=== PATIENT | male | born 1960 | race Caucasian/White ===

== ENCOUNTER 2021-10-30 11:51 | Emergency (ER) | payer BC, SELFPAY ==
--- NOTE | ~2021-10-30 | CT_ITS ---
EXAMINATION: CT ANGIOGRAM CHEST CLINICAL INFORMATION: Chest pain, back pain and elevated troponin COMPARISON: None TECHNIQUE: Multiple axial images were obtained through the chest after the administration of 85 mL of Omnipaque 350 intravenous contrast. Additional 2-D coronal and sagittal reformatted images and axial 3-D maximum intensity projection MIP images are generated on the CT workstation. This CT examination was performed using dose optimization techniques as appropriate, variously including the following: *Automated exposure control *Adjustment of mA and/or kV according to patient size (this includes techniques or standardized protocols for targeted exams where dose is matched to indication/reason for exam; i.e. extremities or head) *Use of iterative reconstruction technique DLP: 377 mGy-cm FINDINGS: LUNGS: Some mild apical pleural-parenchymal scarring is seen with some minimal upper lobe peripheral blebs seen. The lungs are otherwise clear with no evidence of inflammation or nodules. MEDIASTINUM: The mediastinum is normal. VASCULAR: The thoracic aorta appears unremarkable. There is no evidence of an acute aortic syndrome such as dissection, aneurysm or intramural hematoma. Three-vessel branching pattern of the arch is seen with widely patent visualized great vessels. The small portion of the abdominal aorta is unremarkable with patent celiac and SMA. Only the right renal artery origin is seen. Although not carried out for evaluation the pulmonary arteries, they are exceptionally well seen and there is no evidence of pulmonary embolus. PLEURA: There is no pleural effusion. No pleural mass or thickening. AXILLA: No lymphadenopathy. UPPER ABDOMEN: Mild thickening of the left adrenal gland. OSSEOUS STRUCTURES: Unremarkable. CT/CT angio chest aorta IMPRESSION: No evidence of an acute aortic syndrome. The thoracic arch appears normal. No pulmonary emboli are visualized. Fleischner guidelines were followed.
--- NOTE | ~2021-10-30 | XR_ITS ---
EXAMINATION: XR CHEST CLINICAL INFORMATION: Cough, anterior chest pain COMPARISON: None TECHNIQUE: Frontal view of the chest was obtained. FINDINGS: The lungs appear hyperinflated. No focal consolidation is seen. Biapical scarring is noted. No evidence of pneumothorax, pleural effusion, or pulmonary edema. The cardiomediastinal contour is unremarkable. No acute osseous findings are seen. XR/XR chest 1V IMPRESSION: Hyperinflated lungs which may reflect CPPD. Otherwise no acute findings identified.
[2021-10-30 11:55] VITALS: BP 146/85; PULSE 83; RESP 18; TEMP 36.7; O2SAT 96; BMI 24.4
--- NOTE | 2021-10-30 11:57 | ECG_ITS ---
Test Reason : chest pain Blood Pressure : / mmHG Vent. Rate : 081 BPM Atrial Rate : 081 BPM P-R Int : 196 ms QRS Dur : 100 ms QT Int : 378 ms P-R-T Axes : 085 050 088 degrees QTc Int : 439 ms Normal sinus rhythm Possible Left atrial enlargement Incomplete right bundle branch block Nonspecific ST abnormality Abnormal ECG No previous ECGs available Referred By: Generic ED Physician Electronically Signed By:CHELLE GOMEZ
[2021-10-30 12:13] LABS: MANUAL DIFF FLAG NO
[2021-10-30 12:15] LABS: Basophils Percent Auto 0.3 % (0-2); Eosinophils Absolute Auto 0.1 X10*3/uL (0.0-0.4); Hemoglobin 14.5 g/dl (14.0-18.0); Imm Gran Abs Auto 0.06 X10*3/uL (0.00-0.03); Imm Gran Pct Auto 0.5 % (0.0-0.4); Lymphocytes Percent Auto 25.3 % (20-40); Mean Corpuscular HGB Conc 33.7 g/dl (31.0-36.0); Mean Corpuscular Hemoglobin 31.5 pg (27.0-33.0); Mean Corpuscular Volume 93.5 fL (80.0-98.0); Mean Platelet Volume 9.4 fL (9.4-12.4); Monocytes Absolute Auto 0.9 X10*3/uL (0.1-1.2); Monocytes Percent Auto 7.2 % (2-11); Neutrophils Absolute Auto 7.8 x10*3/uL (2.0-8.3); Neutrophils Percent Auto 65.7 % (45-73); Platelet Count 246 X10*3/uL (160-400); Red Cell Distribution Width 12.8 % (11.0-16.0); White Blood Count 11.9 X10*3/uL (4.8-10.8)
[2021-10-30 12:34] LABS: Anion Gap 16 (12-20); Blood Urea Nitrogen 14 mg/dL (9-16); Calcium 9.4 mg/dL (8.4-10.2); Carbon Dioxide 26 mmol/L (22-29); Chloride 101 mmol/L (96-108); Creatinine Clr Calc Pharmacy 86.2; Estimated Glomerular Filt Rate > 60; Glucose Random 195 mg/dL (60-115); Potassium 4.3 mmol/L (3.3-5.1); Sodium 139 mmol/L (135-145)
[2021-10-30 12:39] LABS: COVID-19 Test Negative (Negative); IDNOW Serial# 16C4AD1C
--- NOTE | 2021-10-30 13:12 | ED.CHESTPAIN ---
HPI - Chest Pain General Chief Complaint: Chest Pain Stated Complaint: Chest pain Time Seen by Provider: 10/30/21 13:12 Source: patient Mode of arrival: ambulatory Limitations: no limitations History of Present Illness HPI narrative: 61-year-old male who presents emergency department for evaluation cough, chest pain, back pain, arm pain. Patient states that on Friday (3 days prior) he developed a cough which was occasionally productive. He states that yesterday while he was at work, at approximately 09:00 he walked up a flight of stairs and felt very short of breath . states that after that he had a gradual onset of chest pain. He runs his hand across his anterior chest when asked to localize the pain. He states the pain was worse in the sternum but did radiate to his back. He states the pain was a constant burning sensation. He states that the pain got severely worse at midnight and was 10/10. The pain did not radiate to his neck or jaw but did radiate down both arms and did radiate to his back. He states that he had some slight nausea and lightheadedness. He states that this is 1st episode of this type of pain. At the time of my evaluation in the emergency department states that he is still having chest pain but it is 1/10 with no other symptoms. MD complaint: chest pain Onset (ago): day(s) (1) Timing of current episode: constant Prior episodes: No Onset: during exertion (Walked up several flights of stairs) Pain location: substernal, left chest and right chest Pain radiation: right arm, left arm and back Severity: severe Pain scale (0-10): 10 Quality: burning Relieving factors: nothing Exacerbating factors: nothing Context: recent illness (Cough x3 days) Associated symptoms: nausea and dyspnea Treatment prior to arrival: none Risk Factors Coronary artery disease risk factors: smoking history (Half pack times 40 years) Related Data Allergies Allergy/AdvReac Type Severity Reaction Status Date / Time No Known Allergies Allergy Verified 10/30/21 11:54 Review of Systems Review of Systems: Yes all other systems are reviewed and are negative [facility] Past Medical History [facility] Narrative: Past medical history: None. Past surgical history: None. Social history: The patient smokes 1/2 pack of cigarettes per day times 40 years. The patient drinks alcohol 2 to 3 times a week, he states that when he drinks he drinks 4-6 beers and 4 shots of whiskey. Patient occasionally uses marijuana. He denies cocaine use. Social History Social History Patient Tobacco Use Status: Current everyday Tobacco user Use of substances other than those prescribed or required for medical reasons: Yes Substance Use Type: Marijuana Advance Directives: No Advance Directives Information Provided: No Physical Exam Vital Signs: Vital Signs: Last Vital Signs Temp 98.1 F 10/30/21 11:55 Pulse 72 10/30/21 13:24 Resp 18 10/30/21 13:24 BP 158/85 H 10/30/21 13:24 Pulse Ox 96 10/30/21 13:24 O2 Del Method 10/30/21 13:24 BMI result Body Mass Index 24.4 Const: General: cooperative and no acute distress Orientation/consciousness: oriented to person and oriented to place Limitations: no limitations HEENT: Head: Yes normal to inspection, Yes normocephalic and Yes atraumatic Ears: external ears normal General nose exam: Normal external nose present Face and sinus: Yes normal facial exam Mouth: Normal oral and palatal mucosa present Throat: Yes posterior oropharynx normal Eyes: General: appearance normal, both eyes and all related structures Pupils: Equal, round and reactive pupils present Neck: Neck: Yes normal visual inspection, Yes no lymphadenopathy, Yes trachea midline and Yes supple Chest: Chest palpation & inspection: normal inspection of the chest and normal palpation of entire chest wall Resp: Effort & Inspection: normal respiratory effort and able to speak in complete sentences Auscultation: clear to auscultation bilaterally Cardio: Rate: regular rate Rhythm: regular rhythm Heart sounds: S1 normal heart sound present, S2 normal heart sound present and no murmurs GI: Inspection: Yes normal to inspection Palpation (GI): Soft to palpation, nontender and no guarding Auscultation: normal bowel sounds : General: Yes no CVA tenderness Back/Spine/Pelvis: Back: no CVA tenderness Skin: General skin exam: no rashes or lesions noted Neuro: General: oriented to person and oriented to place Cranial nerves: Yes CN's II-XII intact bilaterally and Yes Equal, round and reactive pupils present Cognition (Neuro): normal cognition Motor exam (neuro): 5/5 motor strength present throughout Extrem: General: Yes normal to inspection Psych: Appearance: grossly normal Speech and movement: Normal speech and movement present Affect: normal affect Attitude: cooperative Thought process: Normal thought process present Thought content: Normal thought content present Course Course Course Narrative: 61-year-old male who presents emergency department for evaluation of occasional cough x3 days, dyspnea after walking up a flight of stairs that occurred yesterday, constant anterior chest pain since noon yesterday with increased pain at midnight with pain that radiates to his back and down both arms. This is the patient's 1st episode of this type of pain. At the time my evaluation he states this pain was significantly improved in was 02/19. Patient's cardiac risk factors include his age and significant smoking history. Patient's physical examination revealed an elevated blood pressure of 146/85 otherwise was unremarkable. 1341: Laboratory evaluation: WBC 11.9. Glucose elevated 195. Troponin at 12:00 hours was 4262. COVID-19 was negative. Radiology evaluation: Chest x-ray: Hyperinflated lungs otherwise unremarkable. Twelve EK:03 hours that normal sinus rhythm with a rate of 81, normal [place] interval, prolonged QRS of 100 milliseconds, normal QTC interval, no ST segment elevation, no significant ST segment depression, inverted T-waves in lead V1, V2, incomplete right bundle-branch block, no old EKG for comparison Given the patient's elevated troponin the patient most likely had myocardial injury from a myocardial infarction however given the fact that he did have associated back pain I did order a CT angiogram of the patient's thoracic aorta to rule out dissection. I will hold off on giving the patient aspirin heparin until this result is available. 1552: CT angiogram thoracic aorta: Radiology reading as follows: IMPRESSION: No evidence of an acute aortic syndrome. The thoracic arch appears normal. No pulmonary emboli are visualized. Dictated By:Navi Lopez MD 1612: The patient's presentation is consistent with an NSTEMI. I did discuss the patient's presentation with our on-call photographic colorist, Dr. Franco. His recommendation was to transfer this patient to [facility] for further management . Therefore I will contact [facility] for possible transfer. 1623: Patient's repeat 3 hour high sensitive troponin I was 6322. This was elevated compared to 4262 but with a delta less than 50%. I did discuss the patient's presentation with the cardiology attending at [facility], Dr. Carvajal who did accept the patient in transfer. The patient will be transferred to [facility] where appropriate bed is available. 1638: Patient was seen by our photographic colorist, Dr. Franco. He evaluate the patient in the emergency department. He recommended that to the patient get metoprolol 50 mg orally. MDM - Chest Pain Lab Data Attestation: I reviewed the patient's lab results. Result diagrams: 10/30/21 12:04 10/30/21 12:04 Labs: Lab Results 10/30/21 10/30/21 10/30/21 Range/Units 12:04 12:04 12:04 WBC 11.9 H (4.8-10.8) X10*3/uL RBC 4.60 (4.60-5.80) X10*6/uL Hgb 14.5 (14.0-18.0) g/dl Hct 43.0 (42.0-52.0) % MCV 93.5 (80.0-98.0) fL MCH 31.5 (27.0-33.0) pg MCHC 33.7 (31.0-36.0) g/dl RDW 12.8 (11.0-16.0) % Plt Count 246 (160-400) X10*3/uL MPV 9.4 (9.4-12.4) fL Immature Gran % (Auto) 0.5 H (0.0-0.4) % Neut % (Auto) 65.7 (45-73) % Lymph % (Auto) 25.3 (20-40) % Stafford % (Auto) 7.2 (2-11) % Eos % (Auto) 1.0 (0-4) % Baso % (Auto) 0.3 (0-2) % Lymph # (Auto) 3.0 (1.2-4.9) X10*3/uL Stafford # (Auto) 0.9 (0.1-1.2) X10*3/uL Eos # (Auto) 0.1 (0.0-0.4) X10*3/uL Baso # (Auto) 0.0 (0.0-0.2) X10*3/uL Abs Immat Gran (auto) 0.06 H (0.00-0.03) X10*3/uL Absolute Neuts (auto) 7.8 (2.0-8.3) x10*3/uL Absolute Nucleated RBC 0.000 (0.0-0.012) X10*3/uL Nucleated RBC % (auto) 0.0 (0.0-0.2) /100WBC Sodium 139 (135-145) mmol/L Potassium 4.3 (3.3-5.1) mmol/L Chloride 101 (96-108) mmol/L Carbon Dioxide 26 (22-29) mmol/L Anion Gap 16 (12-20) BUN 14 (9-16) mg/dL Creatinine 1.00 (0.5-1.4) mg/dL Estim Creat Clear Calc 86.2 Estimated GFR > 60 Random Glucose 195 H (60-115) mg/dL Calcium 9.4 (8.4-10.2) mg/dL Troponin I High Sens 4262.8 H* (<3.5-35.0) ng/L COVID-19 ([facility]) (Negative) COVID-19 Clin Com 10/30/21 10/30/21 Range/Units 12:04 15:33 WBC (4.8-10.8) X10*3/uL RBC (4.60-5.80) X10*6/uL Hgb (14.0-18.0) g/dl Hct (42.0-52.0) % MCV (80.0-98.0) fL MCH (27.0-33.0) pg MCHC (31.0-36.0) g/dl RDW (11.0-16.0) % Plt Count (160-400) X10*3/uL MPV (9.4-12.4) fL Immature Gran % (Auto) (0.0-0.4) % Neut % (Auto) (45-73) % Lymph % (Auto) (20-40) % Stafford % (Auto) (2-11) % Eos % (Auto) (0-4) % Baso % (Auto) (0-2) % Lymph # (Auto) (1.2-4.9) X10*3/uL Stafford # (Auto) (0.1-1.2) X10*3/uL Eos # (Auto) (0.0-0.4) X10*3/uL Baso # (Auto) (0.0-0.2) X10*3/uL Abs Immat Gran (auto) (0.00-0.03) X10*3/uL Absolute Neuts (auto) (2.0-8.3) x10*3/uL Absolute Nucleated RBC (0.0-0.012) X10*3/uL Nucleated RBC % (auto) (0.0-0.2) /100WBC Sodium (135-145) mmol/L Potassium (3.3-5.1) mmol/L Chloride (96-108) mmol/L Carbon Dioxide (22-29) mmol/L Anion Gap (12-20) BUN (9-16) mg/dL Creatinine (0.5-1.4) mg/dL Estim Creat Clear Calc Estimated GFR Random Glucose (60-115) mg/dL Calcium (8.4-10.2) mg/dL Troponin I High Sens 6322.0 H* (<3.5-35.0) ng/L COVID-19 ([facility]) Negative (Negative) COVID-19 Clin Com See Note ECG Data ECG #1: Attestation: I personally reviewed and interpreted this ECG as follows: Interpretation: 1203: Normal sinus rhythm rate of 81, normal [place] interval, prolonged QRS 100 milliseconds, QTC interval, no ST segment elevation, no ST segment depression, inverted T-wave V1 and V2, no PVCs, no PACs no old EKG for comparison. Critical Care Time Critical Care Time Critical Care Time: Yes Total Critical Care Time: 45 Attestation: Critical Care: The patient was critically ill with a high probability of imminent or life threatening deterioration. I spent greater than 30 minutes of discontinuous time evaluating the patient,delivering critical care at the bedside, discussing and evaluating pertinent data with consultants. Critical care time does not include time spent performing separately billable procedures or teaching. Total time spent performing critical care was 45 minutes. Discharge Plan Discharge Clinical Impression: Acute non-ST elevation myocardial infarction (NSTEMI) Patient Disposition: [facility] Transfer Details: [facility]
[2021-10-30 13:24] VITALS: BP 158/85; PULSE 72; RESP 18; O2SAT 96
[2021-10-30] MEDS: ondansetron HCL 4 MG/2 ML VIAL IVPUSH (13:57)
[2021-10-30] MEDS: Morphine Sulfate 4 MG/ML CARTRIDGE IVPUSH ×2 (13:57→16:36)
[2021-10-30] MEDS: 0.9 % Sodium Chloride 1,000 ML 999 ML IV (13:58)
--- NOTE | 2021-10-30 16:14 | PC.NURSE ---
@ 0368 DR HARRISON REQUESTS CALL [facility] LINE ON THIS PT FOR POSSIBLE TX LETITIA ANSWERS, TAKES PT INFO THEN ASKS TO SPEAK WITH DR HUNTER HARRISON TAKE OVER CALL RIGHT AWAY
[2021-10-30] MEDS: Aspirin 81 MG TAB.CHEW 324 MG PO (16:34)
[2021-10-30] MEDS: Heparin Sodium,Porcine 5,000 UNIT/ML VIAL 4000 UNIT IVPUSH (16:35)
[2021-10-30 16:36] VITALS: RESP 20
--- NOTE | 2021-10-30 16:39 | P.CONCA_ITS ---
History of Present Illness History of Present Illness Date of Service: 10/30/21 Chief complaint: Chest pain Narrative: This is a cardiology consultation regarding chest pain and elevated troponins. Patient is a chronic smoker but otherwise really does not have any major comorbidities. He is fairly healthy according to him. Works as an control equipment electrician. He is active in his job without any issues. Since yesterday, he has been having substernal chest pain radiating to his shoulders as well as both upper extremities. Very classical for angina. Then he presented to the emergency room and found to have elevated troponin suggestive of non ST elevation myocardial infarction. Currently seems comfortable. No previous cardiac issues or any major comorbidities but he does not see a doctor either. Review of Systems Review of Systems: Yes all other systems are reviewed and are negative Constitutional: Constitutional: Reports as per HPI Eyes: Eyes: Reports as per HPI ENT: Reports as per HPI Cardiovascular: Cardiovascular: Reports as per HPI, Denies acrocyanosis, Denies cool extremities, Denies chest pain, Denies leg edema, Denies lightheadedness, Denies palpitations and Denies dyspnea Respiratory: Respiratory: Reports as per HPI, Reports no additional re spiratory complaints and Denies dyspnea Gastrointestinal: Gastrointestinal: Reports as per HPI and Reports no additional gastrointestinal complaints Genitourinary: Genitourinary: Reports no additional male genitourinary complaints and Reports as per HPI Musculoskeletal: Musculoskeletal: Reports no additional musculoskeletal complaints and Reports as per HPI Integumentary/Breasts: Skin/Breast: Reports system reviewed and no additional complaints, except as docu Neurologic: Reports system reviewed and no additional complaints, except as documented and Reports as per HPI Psychiatric: Psychiatric: Reports no additional psychiatric complaints and Reports as per HPI Endocrine: Endocrine: Reports no additional endocrine complaints, Reports as per HPI and Denies palpitations Hematologic/Lymphatic: Hematologic/Lymphatic: Reports no additional hematologic/lymphatic complaints and Reports as per HPI Allergic/Immunologic: Allergic/Immunologic: Reports no additional allergic/immunologic complaints and Reports as per HPI [facility] Family History Family History (Updated 10/30/21 @ 16:42 by Rosendo Franco MD) Father Aneurysm Social History Social History Patient Tobacco Use Status: Current everyday Tobacco user Use of substances other than those prescribed or required for medical reasons: Yes Substance Use Type: Marijuana Advance Directives: No Advance Directives Information Provided: No Meds Allergies Allergy/AdvReac Type Severity Reaction Status Date / Time No Known Allergies Allergy Verified 10/30/21 11:54 Active Medications: Current Medications Heparin Sodium (Porcine) (Heparin Sodium,Porcine 5,000 Unit/Ml Vial) 3,300 unit 40 unit/kg (3300 unit) IVPUSH PROTOCOL BOLUS PRN; Protocol PRN Reason: 40 unit/kg - Heparin Protocol Heparin Sodium (Porcine) (Heparin Sodium,Porcine 5,000 Unit/Ml Vial) 6,500 unit 80 unit/kg (6500 unit) IVPUSH PROTOCOL BOLUS PRN; Protocol PRN Reason: 80 unit/kg - Heparin Protocol Heparin Sodium/Sodium Chloride (Heparin Sodium,Porcine/1/2ns) 25,000 unit in 250 mls @ 0 mls/hr IVCONT .Q0M ALEX; Protocol Physical Exam Vital Signs: Vital Signs: Last Vital Signs Temp 98.1 F 10/30/21 11:55 Pulse 72 10/30/21 13:24 Resp 18 10/30/21 13:24 BP 158/85 H 10/30/21 13:24 Pulse Ox 96 10/30/21 13:24 O2 Del Method 10/30/21 13:24 BMI result Body Mass Index 24.4 Const: General: comfortable and no acute distress Orientation/consciousness: patient oriented x3 HEENT: Other: Unremarkable Head: Yes normal to inspection Neck: Neck: Yes normal visual inspection Chest: Chest palpation & inspection: normal inspection of the chest Resp: Auscultation: clear to auscultation bilaterally Cardio: Palpation: normal PMI Heart sounds: S1 normal heart sound present, S2 normal heart sound present, no gallops, no murmurs and no rubs GI: Palpation (GI): Soft to palpation Back/Spine/Pelvis: Other: unremarkable Skin: General skin exam: no rashes or lesions noted Neuro: General: patient oriented x3 Extrem: General: Yes normal to inspection Psych: Mental Status: mental status grossly normal Objective Labs and Meds Result diagrams: 10/30/21 12:04 10/30/21 12:04 Lab results: Laboratory Results - last 24 hr 10/30/21 10/30/21 10/30/21 12:04 12:04 12:04 WBC 11.9 H RBC 4.60 Hgb 14.5 Hct 43.0 MCV 93.5 MCH 31.5 MCHC 33.7 RDW 12.8 Plt Count 246 MPV 9.4 Immature Gran % (Auto) 0.5 H Neut % (Auto) 65.7 Lymph % (Auto) 25.3 [facility] % (Auto) 7.2 Eos % (Auto) 1.0 Baso % (Auto) 0.3 Lymph # (Auto) 3.0 [facility] # (Auto) 0.9 Eos # (Auto) 0.1 Baso # (Auto) 0.0 Abs Immat Gran (auto) 0.06 H Absolute Neuts (auto) 7.8 Absolute Nucleated RBC 0.000 Nucleated RBC % (auto) 0.0 Sodium 139 Potassium 4.3 Chloride 101 Carbon Dioxide 26 Anion Gap 16 BUN 14 Creatinine 1.00 Estim Creat Clear Calc 86.2 Estimated GFR > 60 Random Glucose 195 H Calcium 9.4 Troponin I High Sens 4262.8 H* COVID-19 ([facility]) COVID-19 [email or web address] Com 10/30/21 10/30/21 12:04 15:33 WBC RBC Hgb Hct MCV MCH MCHC RDW Plt Count MPV Immature Gran % (Auto) Neut % (Auto) Lymph % (Auto) [facility] % (Auto) Eos % (Auto) Baso % (Auto) Lymph # (Auto) [facility] # (Auto) Eos # (Auto) Baso # (Auto) Abs Immat Gran (auto) Absolute Neuts (auto) Absolute Nucleated RBC Nucleated RBC % (auto) Sodium Potassium Chloride Carbon Dioxide Anion Gap BUN Creatinine Estim Creat Clear Calc Estimated GFR Random Glucose Calcium Troponin I High Sens 6322.0 H* COVID-19 ([facility]) Negative COVID-19 Clin Com See Note ECG Interpretation: EKG with sinus rhythm at 81/Min; incomplete right bundle-branch block and nonspecific ST-T changes in lead 1/aVL. Imaging Radiologist's impression: Impressions Chest X-Ray 10/30/21 12:12 IMPRESSION: Hyperinflated lungs which may reflect CPPD. Otherwise no acute findings identified. Chest CTA 10/30/21 13:32 IMPRESSION: No evidence of an acute aortic syndrome. The thoracic arch appears normal. No pulmonary emboli are visualized. Fleischner guidelines were followed. Assessment and Plan (1) Acute non-ST elevation myocardial infarction (NSTEMI): Status: Acute Plan Symptoms are classical for angina. Main risk factor is smoking. High sensitivity troponins are 4262 and 6322. Nothing clearly ischemic on the EKG. He needs a diagnostic cardiac catheterization. Will need to transfer to [facility] in this regard. In the interim, start treatment for non ST elevation myocardial infarction. IV heparin. Aspirin, beta-blockers and statins. Blood pressure is slightly on the higher side beta-colby should help. Nitrates as needed. Discussed with ER physician, Dr. Garibay. Procedures Date of Service Date of Service: 10/30/21
[2021-10-30 16:46] VITALS: BP 161/90; PULSE 73; RESP 14; TEMP 37.1; O2SAT 96
[2021-10-30] MEDS: Metoprolol Tartrate 50 MG TABLET PO (16:49)
[2021-10-30 17:10] VITALS: BMI 24.2
--- NOTE | 2021-10-30 17:16 | PC.NURSE ---
[facility] bed assignment MM6 ROOM 3 accepting is nurse to nurse [phone]
--- NOTE | 2021-10-30 17:41 | PC.NURSE ---
call out to [facility] @[phone] regarding transfer to [facility] ROOM 3 [facility] has no ALS trucks available, they will try to pass it on.
[2021-10-30 17:43] LABS: Partial Thromboplastin Time > 200.0 SEC (26.0-36.4)
--- NOTE | 2021-10-30 17:45 | PC.NURSE ---
This RN gave heparin bolus to pt without knowing the coag values had not yet been drawn. PCT Lazaro then kamala the blood for PTT after the pt had received 4000 units of heparin through IV. Prior to starting heparin drip, the lab called to inform this RN that the pt's PTT value was now >200. Provider notified and ordered this RN to continue with the initiation of heparin drip at this time.
[2021-10-30] MEDS: Heparin Sodium,Porcine/1/2NS 25,000 UNIT/250 ML IV.SOLN 9.72 UNIT IVCONT (17:50)
== END 2021-10-30 18:20 | disposition short-term general hospital (02) ==
PROVIDERS: Emergency Provider Emergency Medicine Emergency Medical Services
DX: I21.4 Non-ST elevation (NSTEMI) myocardial infarction (principal); R07.89 Other chest pain; R05.9 Cough, unspecified; R06.02 Shortness of breath; M54.50 Low back pain, unspecified; Z20.822 Contact with and (suspected) exposure to COVID-19; F17.200 Nicotine dependence, unspecified, uncomplicated; Z71.6 Tobacco abuse counseling; Z79.899 Other long term (current) drug therapy
CPT/HCPCS: 36415; 71045; 71275; 80048; 84484; 85025; 85610; 85730; 87635; 93005; 96361; 96374; 96375; 96376; 99285; J2270; J2405